=== PATIENT | male | born 1990 | race Caucasian/White ===

== ENCOUNTER 2025-01-11 18:12 | Emergency (ER) | payer MEDICAID, SELFPAY ==
[2025-01-11 18:14] VITALS: BP 142/97
[2025-01-11 18:38] VITALS: BMI 25.8
[2025-01-11 18:40] VITALS: BP 144/74
--- NOTE | 2025-01-11 19:04 | ED.GENMED ---
History of Present Illness
General
Chief Complaint: Skin Problem
Source: patient
Exam Limitations: none
Time Seen by Provider: 01/11/25 18:36
Nursing documentation reviewed up to this point in time: agreed with
History of Present Illness
History of Present Illness:
see MDM
Past History
Past History
ED Past Medical History: HTN and Other (Spinal fracture)
ED Past Surgical History: Orthopedic (Right wrist surgery)
Social History
Tobacco: Former smoker
Alcohol: None
Drug: IVDA (Heroinm former; on suboxone, clean 2 years)
Personal: Single
Review of Systems
Review of Systems
Allergies reviewed?: Yes
All Other Systems: Not applicable
Phy Exam
Physical Exam
Physical Exam:
GENERAL: Alert , in no apparent distress
CARDIAC: Regular rate and rhythm .
LUNGS: Clear breath sounds bilaterally, no acute respiratory distress, no wheezes/rales/rhonchi
ABDOMEN: Soft, without focal tenderness, no r/g, no cvat, normal bowel sounds
NEUROLOGICAL: Alert and oriented, no focal neuro deficits
SKIN: Warm and dry, abscess to R wrist
Localized abscess on the dorsal aspect of the right wrist radial side with a central scab, no significant lymphangitis, no drainage
MUSCULOSKELETAL: Abscess to the right wrist with full painless range of motion of the wrist and forearm, no soft tissue swelling
PSYCH: Normal and appropriate interaction.
Course
Orders/Labs/Results
Orders:
Orders
01/11/25 20:10
Wound Culture [Wound/Abscess/Other Culture] Urgent
RASHI Source: Abscess
Specimen Description:
Date Specimen was Collected: 01/11/25
Time Specimen was Collected: 20:08
Vital Signs
Initial and Last Documented VS:
Initial Vital Signs
Temp Pulse Resp BP Pulse Ox
37.7 C 67 12 142/97 99
01/11/25 18:14 01/11/25 18:14 01/11/25 18:14 01/11/25 18:14 01/11/25 18:14
Last Documented Vital Signs
Temp Pulse Resp BP Pulse Ox
36.7 C 62 18 140/78 100
01/11/25 18:40 01/11/25 20:13 01/11/25 20:13 01/11/25 20:13 01/11/25 20:13
MDM/Problems Addressed
Differential Diagnosis Includes:
see MDM
MDM/Problems Addressed:
Note:
CHIEF COMPLAINT(S)
Abscess requiring drainage and nausea with vomiting.
HISTORY OF PRESENT ILLNESS
The patient is a 34-year-old male who presents with an r WRIST abscess likely secondary to a tattoo received 10 days prior. The abscess began to enlarge three days ago, with pain/swelling localized and then into the prox forearm. he went to on
01/07 and was given augmentin. by 01/09 pain was worse so he went to [facility] where they admitted him for IV abx and surgery consult for I&D
pt says he was moved to the floor and was waiting surgeon to return for I&D at bedside but they never came. he got very frustrated and was told he would have to spend another night so he left.
he is just requesting I&D of the abscess so he can go home
he is unsure waht abx he received
he denies ongoing IVDA but does have h/o and is on suboxone
pt says he did vomit 2 times, once while at [place] today and another time on the way to the ER
pt doesn't nkow why he vomited, he says he thinks he was just worked up
he patient denies fever or chills and mentions improvement in swelling and discomfort since discharge, but is eager to have the abscess drained to return home to his children.
PAST MEDICAL AND SURIGICAL HISTORY
History of drug addiction, currently in remission for two years.
SOCIAL DETERMINANTS AFFECTING HEALTH
The patient is new in town and has expressed frustration with accessing timely healthcare services. He has a history of drug dependency but has been sober for two years.
MEDICATIONS
The patient received intravenous antibiotics (unspecified) during the hospital stay and is currently prescribed Augmentin.
REVIEW OF SYSTEMS
- Gastrointestinal: Reports nausea and vomiting twice.
- Skin and Lymphatics: Presence of an abscess at tattoo site, improved in swelling.
PHYSICAL EXAM
- Skin: Abscess at the site of recent tattoo, reduced swelling; no redness or discharge noted.
- Gastrointestinal: Abdomen non-distended.
Nursing notes reviewed and vital signs reviewed.
PROBLEM LIST
Acute:
- Abscess post-tattoo
- Nausea and vomiting
- Elevated White Blood Cell Count
PLAN
- Plan to drain abscess at the current visit.
- Consideration for switching oral antibiotics post-drainage.
- Check on previous medical records for specific antibiotics used during hospital stay to avoid overlap or resistance.
DIFFERENTIAL DIAGNOSIS
The Differential Diagnosis includes, in no particular order and is not limited to:
- Skin abscess
- Cellulitis
- Deep vein thrombosis
- Phlebitis
- Dermatologic reaction to tattoo ink
- Contact dermatitis
- Allergic reaction
- Infected sebaceous cyst
- Erysipelas
- Fasciitis
34 y/o M with h/o former IVDA
on suboxone
says sober 2 years
had recent tattoo to R hand/wrist 10 days ago
started with pain/swelling and localized abscess to R wrist dorsum
the pain /swelling extended tot he forearm despite oral augmentin x 2 days so he went to [facility] where he was admitted and had IV abx
had [facility] consult for bedside I&D but it was not performed; tp says he was feeling uneasy about not being kept updated with situation and felt frustrated so eh left AMA
he would refuse admission here and wants to have I&D so he can go home
Note:
Disposition:
SUMMARY OF ENCOUNTER
The patient is a 34-year-old male with a history of former IV drug abuse and a recent tattoo on the right wrist, presenting for an abscess on the dorsal aspect of the wrist. The abscess began approximately five days ago, following a tattoo
placement. Initial treatment with Augmentin prescribed by urgent care failed, leading to admission at [place] for intravenous antibiotics, including cefepime and vancomycin. Despite a plan for bedside incision and drainage (I&D) by surgery, the
patient became frustrated with delays and left against medical advice. Presently, he requests I&D of the abscess. He reports improvement in pain, swelling, and redness in the forearm without fever, although he experienced two episodes of vomiting
today, possibly due to anxiety. On examination, the patient had a localized abscess on the dorsal right radial wrist, with full painless range of motion and no proximal extension. There was slight erosion in the center where it briefly drained. A
bedside I&D was performed, and purulent drainage was expressed. The wound was packed with gauze, and a volar splint was applied for healing.
DISPOSITION
Discharge.
ASSESSMENT
The patient has a skin abscess related to a recent tattoo, complicated by previous IV drug use history and anxiety.
EMERGENCY TREATMENTS ADMINISTERED
A bedside incision and drainage of the right wrist abscess were performed, with wound culture taken, drainage expressed, and the wound packed with gauze.
PLAN
The patient was placed in a volar splint for healing. He should begin warm compresses the day following discharge after removing the packing himself. He should reapply the splint for several days. Watch for signs of worsening cellulitis or systemic
symptoms. Antibiotics have been changed to doxycycline.
PATIENT EDUCATION AND COUNSELING
The patient was instructed on wound care, including warm compresses and reapplication of the splint. He was advised to monitor for worsening cellulitis or systemic symptoms and to seek medical attention if these occur.
FOLLOW-UP INSTRUCTIONS
Follow up with a primary care physician or specialist if symptoms worsen or do not improve.
MEDICATION RECONCILIATION
Antibiotics changed to doxycycline.
MEDICAL DECISION MAKING
-Chronic conditions affecting care: History of drug addiction, currently in remission.
Differential diagnosis: Skin abscess, Cellulitis, Dermatologic reaction to tattoo ink, Allergic reaction.
-Data:
Category 1:
No external emergency department records reviewed.
Category 3:
No specific discussions of management with other healthcare providers, cyber security instructor, teachers, parole officers, piano case and bench assembler, mental health liaisons documented.
-Risk:
Prescription medication was prescribed: doxycycline.
Care significantly affected by Social Determinants of Health: The patient is new in town and expressed frustration in accessing timely healthcare services, with a history of drug dependency.
DIAGNOSIS
- Abscess of right wrist secondary to tattoo (L02.419)
- Nausea with vomiting (R11.2)
*Pulse Oximetry
SaO2: 99
Oxygen Mode of Delivery: Room air
Patient hypoxic: no (100)
*Critical Care Note
Total Time (30-74mins, 75-104mins- exclusive of procedures): Not Applicable
ED Attending Note
-
Portions of this chart may have been created with voice recognition software.� Occasional wrong word or��sound alike� substitutions may have occurred due to the inherent limitations of voice recognition software.
Discharge Plan
Departure
Patient Disposition: Home (Routine Discharge)
Date of Disposition: 01/11/25
Time of Disposition: 20:02
Patient with high blood pressure during this ER visit?: No
Condition: Fair
Covid-19: Not Applicable
Discharge Problem:
Abscess of wrist
Instructions: Abscess incision and drainage - ED discharge instructions
Prescriptions:
New
doxycycline hyclate 100 mg tablet
100 mg PO BID Qty: 20 0RF
No Action
naloxone [Narcan] 4 mg/actuation spray,non-aerosol
4 mg intranasal DIRECTED Qty: 2 0RF
escitalopram oxalate [Lexapro] 10 mg Tablet
10 mg PO DAILY
buprenorphine-naloxone [Suboxone] 2-0.5 mg Tablet, Sublingual
1 tab SUBLINGUAL DAILY
Stand Alone Forms: Return to Work
Activity Restrictions/Additional Instructions:
Start doxycycline twice a day starting tomorrow morning, take for a total of 7 to 10 days. You can stop at 7 days if the abscess is fully healed.
Try to elevate it for the next couple of days. Leave the dressing and splint in place tonight. Tomorrow afternoon take the splint off and undress the wound and pull the packing out. At that point you should start warm compresses and do this with
a warm water and washcloth or gauze for 10 minutes. Do this several times a day until healed. After you are done with the warm compresses you can put a Band-Aid on it and reapply your splint with the Brock wrap. You should only need to use the
splint for several days just to help it heal. If you are noticing surrounding redness or worsening swelling or pain or fever you need to return to the emergency department. Otherwise follow-up with your doctor
Interventions
Interventions:
*Risk Screen - Suicide Last Done: 01/11/25 18:14
*General Assessment Last Done: 01/11/25 18:14
*Neglect/Abuse Screening Last Done: 01/11/25 18:14
*ED- Fall Risk Assessment Last Done: 01/11/25 18:40
*ED COVID-19 Vaccine History Last Done: 01/11/25 18:40
*Nursing Disposition Last Done: 01/11/25 20:14
ED-Skin Assessment Last Done: 01/11/25 18:40
Discharge Date and Time
Discharge Date/Time: 01/11/25 20:14
Print Language: CYPRIOT
[2025-01-11 20:13] VITALS: BP 140/78
== END 2025-01-11 20:14 | disposition home or self-care (01) ==
LOC: EMR 18:12
PROVIDERS: EMERGENCY PHYSICIAN Emergency Medicine
DX: L02.413 Cutaneous abscess of right upper limb (principal); I10 Essential (primary) hypertension; F41.9 Anxiety disorder, unspecified; Z87.891 Personal history of nicotine dependence; Z88.0 Allergy status to penicillin; Z88.1 Allergy status to other antibiotic agents
CPT/HCPCS: 99282; 29125; 87070; 87147; 87186; 87205